=== PATIENT | male | born 1965 | race Caucasian/White ===

== ENCOUNTER 2019-12-18 08:14 | Observation (INO) ==
[2019-12-18 08:52] LABS: Basophils # 0.1 10*3/uL (0.0-0.2); Basophils % 0.7 % (0.0-0.8); Eosinophils # 0.2 10*3/uL (0.0-0.87); Eosinophils % 2.2 % (0.00-10.9); Hematocrit 47.1 VOL% (42.0-52.0); Hemoglobin 15.9 GM/DL (14.0-18.0); Immature Granulocytes % 0.2 %; Immature Granulocytes Absolute 0.02 #; Lymphocytes # 2.1 10*3/uL (1.4-4.0); Lymphocytes % 25.6 % (21.2-54.2); Mean Corpuscular HGB Conc 33.8 GM/DL (32-36); Mean Corpuscular Volume 87.5 FL (87-102); Mean Platelet Volume 9.3 FL (9.6-12.0); Monocytes % 9.7 % (1.7-12.7); Neutrophils % 61.6 % (38.7-73.9); Platelet Count 291 T/CUMM (130-400); Red Blood Count 5.38 MC/CUMM (3.8-5.5); Red Cell Distribution Width 12.9 % (9.3-17.3); White Blood Count 8.3 T/CUMM (4-12)
[2019-12-18] MEDS ORDERED: NITROGLYCERIN 2% OINT 1 INCH/GM PACK TOP STA (08:54)
[2019-12-18] MEDS ORDERED: ASPIRIN CHEW 81 MG TABLET PO STA (08:54)
[2019-12-18] MEDS ORDERED: ENOXAPARIN 100 MG/ML SYRINGE SUBCUT STA (08:54)
[2019-12-18 09:04] LABS: Albumin 4.1 G/DL (3.4-5.0); Bilirubin,Total 0.7 MG/DL (0.2-1.0); Calcium 9.2 MG/DL (8.5-10.1); Osmolality,Calculated 277.7 MOS/KG (273-304); Total Protein 7.5 G/DL (6.4-8.3)
[2019-12-18] MEDS ORDERED: ASPIRIN 325 MG TABLET ONE (09:50)
[2019-12-18] MEDS ORDERED: DEXTROSE 50% 25 GM/50 ML VIAL IV PRN (10:16)
[2019-12-18] MEDS ORDERED: GLUCAGON 1 MG VIAL IM PRN (10:16)
[2019-12-18] MEDS ORDERED: MORPHINE 4 MG/1 ML VIAL IV PRN (10:16)
[2019-12-18] MEDS ORDERED: ACETAMINOPHEN 325 MG TABLET PO PRN (10:16)
[2019-12-18] MEDS ORDERED: ONDANSETRON 4 MG/2 ML VIAL IV PRN (10:16)
[2019-12-18] MEDS ORDERED: ENOXAPARIN 80 MG/0.8 ML SYRINGE SUBCUT SCH (10:30)
[2019-12-18 10:44] LABS: Risk Ratio 5.06; Thyroid Stimulating Hormone 1.09 uIU/ml (0.358-3.74); VLDL CHOLESTEROL 36.2 MG/DL
[2019-12-18 13:09] LABS: Apearance,Urine CLEAR (Clear); Bilirubin,Urine Negative (Negative); Blood, Urine Negative (Negative); Glucose,Urine (UA) Negative (Negative); Ketones,Urine Negative (Negative); Mucus,Urine Occasional /LPF (Occasional); Nitrite,Urine Negative (Negative); Protein,Urine Negative; RBC,Urine 2 /HPF (0-4); Squamous Epithelial Cell,Urine Occasional /HPF (0-10); Urine Color Yellow (Yellow); Urine Specific Gravity 1.018 (1.001-1.035); Urine Urobilinogen < 2.0 EU/DL (0.2-1.0); WBC,Urine 1 /HPF (0-6)
[2019-12-18 13:20] LABS: Barbiturates Screen,Urine Negative (Negative); Benzodiazepines Screen,Urine Negative (Negative); Cannabinoid Screen,Urine Negative (Negative); Opiate Screen,Urine Negative (Negative); Phencyclidine Screen,Urine Negative (Negative)
[2019-12-18] MEDS: PANTOPRAZOLE 40 MG TABLET PO SCH (14:38)
[2019-12-18] MEDS: LACTATED RINGERS 1,000 ML IV SCH ×2 (15:56→16:52)
[2019-12-18] MEDS: lisinopriL 5 MG TABLET PO SCH (22:06)
[2019-12-19] MEDS: LACTATED RINGERS 1,000 ML IV SCH ×2 (02:23→09:32)
[2019-12-19 05:15] LABS: Calcium 8.5 MG/DL (8.5-10.1); Osmolality,Calculated 281.5 MOS/KG (273-304)
[2019-12-19 05:39] LABS: Basophils # 0.1 10*3/uL (0.0-0.2); Basophils % 0.8 % (0.0-0.8); Eosinophils # 0.2 10*3/uL (0.0-0.87); Eosinophils % 2.6 % (0.00-10.9); Hematocrit 40.8 VOL% (42.0-52.0); Immature Granulocytes % 0.4 %; Immature Granulocytes Absolute 0.03 #; Lymphocytes # 2.1 10*3/uL (1.4-4.0); Lymphocytes % 27.5 % (21.2-54.2); Mean Corpuscular HGB Conc 33.8 GM/DL (32-36); Mean Corpuscular Volume 88.5 FL (87-102); Monocytes % 9.4 % (1.7-12.7); Neutrophils % 59.3 % (38.7-73.9); Platelet Count 267 T/CUMM (130-400); Red Blood Count 4.61 MC/CUMM (3.8-5.5); Red Cell Distribution Width 13.1 % (9.3-17.3); White Blood Count 7.8 T/CUMM (4-12)
[2019-12-19 05:51] LABS: Hemoglobin 13.8 GM/DL (14.0-18.0)
[2019-12-19] MEDS ORDERED: ENOXAPARIN 40 MG/0.4 ML SYRINGE SUBCUT SCH (09:00)
[2019-12-19] MEDS ORDERED: ASPIRIN EC 325 MG TABLET PO SCH (09:00)
[2019-12-19] MEDS: lisinopriL 5 MG TABLET PO SCH (09:09)
[2019-12-19] MEDS: PANTOPRAZOLE 40 MG TABLET PO SCH (09:09)
[2019-12-19 16:29] VITALS: BP 107/69
[2019-12-19] MEDS ORDERED: SIMVASTATIN 10 MG TABLET PO SCH (21:00)
== END 2019-12-19 17:46 | disposition home or self-care (01) ==
LOC: N.ED 08:14 → N.EDINP 08:14 → N.2W 13:48 → N.EDINP 13:50 → N.TELES 15:18
PROVIDERS: ADMIT Internal Medicine; ATTEND Internal Medicine